=== PATIENT | male | born 2000 | race Caucasian/White ===

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

== ENCOUNTER 2022-07-29 12:59 | Outpatient (CLI) | payer BC | END 2022-07-29 13:00 | disposition home or self-care (01) | LOC: BICRAD 12:59 | PROVIDERS: ATTEND Internal Medicine | DX: K50.90 Crohn's disease, unspecified, without complications (principal); K90.0 Celiac disease; Z22.7 Latent tuberculosis | CPT/HCPCS: 71046 ==

== ENCOUNTER 2023-08-12 09:54 | Outpatient (CLI) | payer BC | END 2023-08-12 09:55 | disposition home or self-care (01) | LOC: BICRAD 09:54 | PROVIDERS: ATTEND Internal Medicine | DX: K50.90 Crohn's disease, unspecified, without complications (principal) | CPT/HCPCS: 71046 ==